=== PATIENT | female | born 1960 | race Caucasian/White ===

== ENCOUNTER 2025-02-23 12:42 | Outpatient (OUT) | payer MEDICARE, OTHER, SELFPAY ==
--- OUTSIDE RECORDS SUMMARY | 2025-02-18 23:59 | XMS_ITS | Continuity of Care Document ---
Author Organization [facility] Address [address] [place] [address] [place] [address] Care Team Providers Care Fruit Raiser Name Role Phone ERICKA CALLAWAY Primary Care Physician [phone] Encounter FT_BRISEIDA [id number] Date(s): 02/18/25 - 02/18/25 [facility] [address] [place], [place] [address] Encounter Diagnosis Former smoker(Discharge Diagnosis) - 02/18/25 Stress incontinence(Discharge Diagnosis) - 02/18/25 Gross hematuria(Discharge Diagnosis) - 02/18/25 History of kidney stones(Discharge Diagnosis) - 02/18/25 Discharge Disposition: Home (Routine DC) Attending Physician: Mauricio DAVIES, Alma Cruz Encounter Type: Clinic Allergies, Adverse Reactions, Alerts Substance Criticality Severity Reaction Reaction Severity Status sulfa drugs Rash Active Assessment and Plan Future Scheduled Tests Radiology* CT Abdomen/Pelvis w/o Contrast 02/18/25 Immunizations Given and Recorded Vaccine Date Status Refusal Reason RSV vaccine preF3, recombinant 08/08/23 Recorded influenza virus vaccine, inactivated 05/08/23 Mariano rded influenza virus vaccine, inactivated 05/23/22 Mariano rded influenza virus vaccine, inactivated 05/13/21 Mariano rded influenza virus vaccine, inactivated 05/04/20 Mariano rded influenza virus vaccine, inactivated 05/14/19 Mariano rded influenza virus vaccine, inactivated 05/14/18 Mariano rded influenza virus vaccine, inactivated 05/24/17 Mariano rded influenza virus vaccine, inactivated 05/09/16 Mariano rded influenza virus vaccine, inactivated 05/22/15 Mariano rded SARS-CoV-2 (COVID-19) [id number] 06/19/22 Recorded SARS-CoV-2 (COVID-19) mRNA BNT-162b2 vax 1 05/30/21 Recorded SARS-CoV-2 (COVID-19) mRNA BNT-162b2 vax 11/16/20 Recorded SARS-CoV-2 (COVID-19) mRNA BNT-162b2 vax 10/23/20 Recorded zoster vaccine, inactivated 08/24/20 Recorded zoster vaccine, inactivated 05/26/20 Recorded 1Result Comment: 2025-02-18: [id number] Medications atorvastatin 40 mg Tab 40 mg = 1 tab(s), Refills(s) 0 Start Date: 02/17/25 Status: Ordered Repeat number: 1 citalopram 20 mg Tab 20 mg = 1 tab(s), Refills(s) 0 Start Date: 02/17/25 Status: Ordered Repeat number: 1 gabapentin 300 mg Cap 300 mg = 1 cap(s), Refills(s) 0 Start Date: 02/17/25 Status: Ordered Repeat number: 1 levothyroxine 112 mcg (0.112 mg) Tab 112 mcg = 1 tab(s), Refills(s) 0 Start Date: 02/17/25 Status: Ordered Repeat number: 1 Lopressor 25 mg oral tablet 25 mg = 1 tab(s), Oral, Daily, Refills(s) 0 Start Date: 02/17/25 Status: Ordered Repeat number: 1 medroxyPROGESTERone 150 mg/mL IM Susp 150 mg = 1 mL, IntraMuscular, q3mo, # 1 mL, Refills(s) 0 Start Date: 02/17/25 Status: Ordered Quantity: 1.0 Unit: mL Repeat number: 1 Multi Vitamins oral tablet 1 tab(s), Oral, Daily Start Date: 02/18/25 Status: Ordered Repeat number: 1 omeprazole 40 mg Cap-DR 40 mg = 1 cap(s), Refills(s) 0 Start Date: 02/17/25 Status: Ordered Repeat number: 1 Vitamin C 1,000 mg, Oral, Daily Start Date: 02/18/25 Status: Ordered Repeat number: 1 Problem List Condition Confirmation Course Effective Dates Status H ealth Status Informant 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 Active Former smoker Confirmed Active Gross hematuria Confirmed Active Gastroesophageal reflux disease without esophagitis Confirmed 07/14/20 Active Stress incontinence Confirmed Active History of kidney stones Confirmed Active History of malignant basal cell neoplasm of skin Confirmed Active Hyperlipidemia Confirmed Active Hypothyroidism Confirmed Active Milia Confirmed Active Nonrheumatic mitral (valve) prolapse Confirmed Active STEMI (ST elevation myocardial infarction) Confirmed Active Neoplasm of skin Confirmed Active Osteoarthritis Confirmed Active Procedures Procedure Date Related Diagnosis Body Site Status Colonoscopy (procedure) 10/16/22 C ompleted Cyto Cvx 05/10/22 Completed Tubal ligation 07/06/98 Completed Ablation Completed Hip fracture Completed Social History Social History Type Response Smoking Status Former smoker, quit more than 30 days ago;Never; Type: Cigarettes; Started [age] age: 17.0; Stopped at age: 27; entered on: 02/18/25 Sex Female Sex Representation Female (finding) Hospital Discharge Instructions Patient Education 02/18/2025 10:21:16 Dietary Guidelines to Help Prevent Kidney Stones Dietary Guidelines to Help Prevent Kidney Stones Kidney stones are deposits of minerals and salts that form inside your kidneys. Your risk of developing kidney stones may be greater depending on your diet, your lifestyle, the medicines you take, and whether you have certain medical conditions. Most people can lower their risks of developing kidney stones by following these dietary guidelines. Your dietitian may give you more specific instructions depending on your overall health and the type of kidney stones you tend to develop. What are tips for following this plan? Reading food labels ??? Choose foods with no salt added or low-salt labels. Limit your salt (sodium) intake to lessthan 1,500 mg a day. ??? Choose foods with calcium for each meal and snack. Try to eat about 300 mg of calcium at each meal. Foods that contain 200???500 mg of calcium a serving include: ??? 8 oz (237 mL) of milk, fxtykae-mwfatcvwwgkj-zfyco milk, and calcium- fortifiedfruit juice. Calcium-fortified means that calcium has been added to these drinks. ??? 8 oz (237 mL) of kefir, yogurt, and soy yogurt. ??? 4 oz (114 g) of tofu. ??? 1 oz (28 g) of cheese. ??? 1 cup (150 g) of dried figs. ??? 1 cup (91 g) of cooked broccoli. ??? One 3 oz (85 g) can of sardines or mackerel. Most people need 1,000???1,500 mg of calcium a day. Talk to your dietitian about how much calcium is recommended for you. Shopping ??? Buy plenty of fresh fruits and vegetables. Most people do not need to avoid fruits and vegetables, even if these foods contain nutrients that may contribute to kidney stones. ??? When shopping for convenience foods, choose: ??? Whole pieces of fruit. ??? Pre-made salads with dressing on the side. ??? Low-fat fruit and yogurt smoothies. ??? Avoid buying frozen meals or prepared deli foods. These can be high in sodium. ??? Look for foods with live cultures, such as yogurt and kefir. ??? Choose high-fiber grains, such as whole-wheat breads, oat bran, and wheat cereals. Cooking ??? Do not add salt to food when cooking. Place a salt shaker on the table and allow each person toadd their own salt to taste. ??? Use vegetable protein, such as beans, textured vegetable protein (TVP), or tofu, instead of meat in pasta, casseroles, and soups. Meal planning ??? Eat less salt, if told by your dietitian. To do this: ??? Avoid eating processed or pre-made food. ??? Avoid eating fast food. ??? Eat less animal protein, including cheese, meat, poultry, or fish, if told by your dietitian. To do this: ??? Limit the number of times you have meat, poultry, fish, or cheese each week. Eat a diet free ofmeat at least 2 days a week. ??? Eat only one serving each day of meat, poultry, fish, or seafood. ??? When you prepare animal proteins, cut pieces into small portion sizes. For most meat and fish, one serving is about the size of the palm of your hand. ??? Eat at least five servings of fresh fruits and vegetables each day. To do this: ??? Keep fruits and vegetables on hand for snacks. ??? Eat one piece of fruit or a handful of berries with breakfast. ??? Have a salad and fruit at lunch. ??? Have two kinds of vegetables at dinner. ??? You may be told to limit foods that are high in a substance called oxalate. These include: ??? Spinach (cooked), rhubarb, beets, sweet potatoes, and [place] chard. ??? Peanuts. ??? Potato chips, grenadian fries, and baked potatoes with skin on. ??? Nuts and nut products. ??? Chocolate. ??? If you regularly take a diuretic medicine, make sure to eat at least 1 or 2 servings of fruits or vegetables that are high in potassium each day. These include: ??? Avocado. ??? Banana. ??? Carpenter, prune, carrot, or tomato juice. ??? Baked potato. ??? Cabbage. ??? Beans and split peas. Lifestyle ??? Drink enough fluid to keep your urine pale yellow. This is the most important thing you can do.Spread your fluid intake throughout the day. ??? If you drink alcohol: ??? Limit how much you have to: ??? 0???1 drink a day for women who are not . ??? 0???2 drinks a day for men. ??? Know how much alcohol is in your drink. In the [place] one drink equals one 12 oz bottle of beer (355 mL), one 5 oz glass of wine (148 mL), or one 1?? oz glass of hard liquor (44 mL). ??? Lose weight if told by your health care provider. Work with your dietitian to find an eating plan and weight loss strategies that work best for you. General information ??? Talk to your health care provider and dietitian about taking daily supplements. Depending on your health and the cause of your kidney stones, you may be told: ??? Do not take high-dose supplements of vitamin C (1,000 mg a day or more). ??? To take a calcium supplement. ??? To take a daily probiotic supplement. ??? To take other supplements such as magnesium, fish oil, or vitamin B6. ??? Take jipo-xee-yxirzyh and prescription medicines only as told by your health care provider. These include supplements. What foods should I limit? Limit your intake of the following foods, or eat them as told by your dietitian. Vegetables Spinach. Rhubarb. Beets. Canned vegetables. Pickles. Olives. Baked potatoes with skin. Grains Wheat bran. Baked goods. Salted crackers. Cereals high in sugar. Meats and other proteins Nuts. Nut butters. Large portions of meat, poultry, or fish. Salted, precooked, or cured meats, such as sausages, meat loaves, and hot dogs. Dairy Cheeses. Beverages Regular soft drinks. Regular vegetable juice. Seasonings and condiments Seasoning blends with salt. Salad dressings. Soy sauce. Ketchup. Barbecue sauce. Other foods Canned soups. Canned pasta sauce. Casseroles. Pizza. Lasagna. Frozen meals. Potato chips. Sinhala fries. The items listed above may not be a complete list of foods and beverages you should limit. Contact a dietitian for more information. What foods should I avoid? Talk to your dietitian about specific foods you should avoid based on the type of kidney stones youhave and your overall health. Fruits Grapefruit. The item listed above may not be a complete list of foods and beverages you should avoid. Contact adietitian for more information. Summary ??? Kidney stones are deposits of minerals and salts that form inside your kidneys. ??? You can lower your risk of kidney stones by making changes to your diet. ??? The most important thing you can do is drink enough fluid. Drink enough fluid to keep your urine pale yellow. ??? Talk to your dietitian about how much calcium you should have each day, and eat less salt and animal protein as told by your dietitian. This information is not intended to replace advice given to you by your health care provider. Make sure you discuss any questions you have with your health care provider. Document Revised: 11/02/2022 Document Reviewed: 11/02/2022 [employer] Patient Education ?? 2023 [employer] 02/18/2025 10:05:48 Hematuria, Adult Hematuria, Adult Hematuria is blood in the urine. Blood may be visible in the urine, or it may be identified with a test. This condition can be caused by infections of the bladder, urethra, kidney, or prostate. Otherpossible causes include: ??? Kidney stones. ??? Cancer of the urinary tract. ??? Too much calcium in the urine. ??? Conditions that are passed from parent to child (inherited conditions). ??? Exercise that requires a lot of energy. Infections can usually be treated with medicine, and a kidney stone usually will pass through your urine. If neither of these is the cause of your hematuria, more tests may be needed to identify the cause of your symptoms. It is very important to tell your health care provider about any blood in your urine, even if it ispainless or the blood stops without treatment. Blood in the urine, when it happens and then stops and then happens again, can be a symptom of a very serious condition, including cancer. There is no pain in the initial stages of many urinary cancers. Follow these instructions at home: Medicines ??? Take dfcp-qyk-zrfzche and prescription medicines only as told by your health care provider. ??? If you were prescribed an antibiotic medicine, take it as told by your health care provider. Donot stop taking the antibiotic even if you start to feel better. Eating and drinking ??? Drink enough fluid to keep your urine pale yellow. It is recommended that you drink 3???4 quarts (2.8???3.8 L) a day. If you have been diagnosed with an infection, drinking cranberry juice in addition to large amounts of water is recommended. ??? Avoid caffeine, tea, and carbonated beverages. These tend to irritate the bladder. ??? Avoid alcohol because it may irritate the prostate (in males). General instructions ??? If you have been diagnosed with a kidney stone, follow your health care provider's instructionsabout straining your urine to catch the stone. ??? Empty your bladder often. Avoid holding urine for long periods of time. ??? If you are female: ??? After a bowel movement, wipe from front to back and use each piece of toilet paper only once. ??? Empty your bladder before and after sex. ??? Pay attention to any changes in your symptoms. Tell your health care provider about any changesor any new symptoms. ??? It is up to you to get the results of any tests. Ask your health care provider, or the department that is doing the test, when your results will be ready. ??? Keep all follow-up visits. This is important. Contact a health care provider if: ??? You develop back pain. ??? You have a fever or chills. ??? You have nausea or vomiting. ??? Your symptoms do not improve after 3 days. ??? Your symptoms get worse. Get help right away if: ??? You develop severe vomiting and are unable to take medicine without vomiting. ??? You develop severe pain in your back or abdomen even though you are taking medicine. ??? You pass a large amount of blood in your urine. ??? You pass blood clots in your urine. ??? You feel very weak or like you might faint. ??? You faint. Summary ??? Hematuria is blood in the urine. It has many possible causes. ??? It is very important that you tell your health care provider about any blood in your urine, even if it is painless or the blood stops without treatment. ??? Take crsj-jem-fylrgps and prescription medicines only as told by your health care provider. ??? Drink enough fluid to keep your urine pale yellow. This information is not intended to replace advice given to you by your health care provider. Make sure you discuss any questions you have with your health care provider. Document Revised: 03/23/2021 Document Reviewed: 03/23/2021 [employer] Patient Education ?? 2023 [employer] Follow Up Care 01/30/2025 11:58:15 With:Mauricio DAVIES, SANJEEV Gamboa, URO Address: [address] [place] [address] [place] [address] [phone] When: Unknown Comments:f/u pending CTU results Patient Care team information Care Team Personnel Name: ERICKA CALLAWAY MD Position: FT Physician Member Role: Primary Care Physician Address: [address] [place] [id number] Telecom: Care Team Related Persons Name: Tyson Bergeron Insurance Providers Guarantor name: Health Plan Information #: 1 Payer: NA Payer Identifier: [id number] Member Number: [id number] Group Number: [id number] Subscriber Identifier: [id number] Relationship to Subscriber: Self Coverage Type: MEDICARE Coverage Verification Date: 25 Telecom: NA Address: Health Plan Information #: 2 Payer: NA Payer Identifier: [id number] Member Number: [id number] Group Number: PlanG Subscriber Identifier: [id number] Relationship to Subscriber: Self Coverage Type: PRIVATE HEALTH INSURANCE Coverage Verification Date: 25 Telecom: TIMA Address:
--- OUTSIDE RECORDS SUMMARY | 2025-02-23 12:50 | XMS_ITS | Encounter Summary ---
Author Organization Stephon Jenkins [facility] Address [address] [place] [address] Care Team Providers Care Administrative Sales Assistant Name Role Phone Oliver Hope MD Primary Care Provider [phone] Encounter Details Date Type Department Care Team (Late st Contact Info) Description 02/12/2025 Abstract [facility] Part of [address] [place] [id number] Nelly Mary, ASSISTANT STATISTICIAN - PRIMER PRESS OPERATOR [address] [place] [address] Social History Tobacco Use Types Packs/Day Years Used Date Smoking Tobacco: Former Cigarettes 1 15 1 09/14/1976 - 07/22/1989 Smokeless Tobacco: Never Alcohol Use Standard Drinks/Week Comments Yes 0 (1 standard drink = 0.6 oz pur e alcohol) AUDIT-C Answer Date Recorded Frequency of Alcohol Consumption Monthly or less 07/22/2019 Average Number of Drinks 1 or 2 019 Frequency of Binge Drinking Never 07/06 Overall Financial Resource Strain (CARDIA) Answe r Date Recorded How hard is it for you to pa y for the very basics like food, housing, medical care, and heating? Not hard at all 04/22/2024 PHQ-2 Answer Date Recorded PHQ-9 Total Score 0 04/22/2024 Hunger Vital Sign Answer Date Recorded Within the past 12 months, y ou worried that your food would run out before you got the money to buy more. Never true 04/22/20 24 Within the past 12 months, t he food you bought just didn't last and you didn't have money to get more. Never true 04/22/2024 PRAPARE - Transportation Answer Date Re corded Lack of Transportation (Medical) Not on file 04/22/2024 In the past 12 months, has l ack of transportation kept you from meetings, work, or from getting things needed for daily living? No 04/22/2024 Housing Stability Vital Sign Answer Chirag e Recorded Unable to Pay for Housing in the Last Year Not o n file 08/14/2023 Number of Places Lived in the Last Year Not on f ile 08/14/2023 In the last 12 months, was t here a time when you did not have a steady place to sleep or slept in a snf (including now)? No 08/14/2023 Housing Stability Vital Sign Answer Chirag e Recorded Unable to Pay for Housing in the Last Year Not o n file 04/22/2024 Number of Times Moved in the Last Year Not on fi le 04/22/2024 At any time in the past 12 m [facility], were you homeless or living in a snf (including now)? No 04/22/2024 Food Insecurity Answer Date Recorded Within the past 12 months, y ou worried that your food would run out before you got the money to buy more. 1 04/22/2024 Within the past 12 months, t he food you bought just didn't last and you didn't have money to get more. 1 04/22/2024 Interpersonal Safety Domain Source: IP Abuse Scr eening Answer Date Recorded Read-Only, Retired: Physical Abuse Denies 2023 Read-Only, Retired: Verbal Abuse Denies 2023 Read-Only, Retired: Emotional abuse Denies 2023 Read-Only, Retired: Financial Abuse Denies 2023 Read-Only, Retired: Sexual abuse Denies 2023 Comments No Sex and Gender Information Value Date Recorded Sex Assigned at Not on file Legal Sex Female 8:46 PM EST Gender Identity Not on file Sexual Orientation Not on file documented as of this encounter Plan of Treatment Upcoming Encounters Date Type Department Care Team (Late st Contact Info) Description 03/11/2025 3:50 PM EDT Clinical Support [facility] [address] [place] [address] GIL Fernandez, 04/21/2025 3:45 PM EDT Office Visit Silvia Hope MD [facility] [address] [place] [address] Oliver Hope MD [address] [place] [address] welcome to medicare; f/u labs 05/20/2025 11:10 AM EDT Office Visit [facility] [address] [place], [place] [id number] Minda Cash APRN - [address] [place] [address] Yearly documented as of this encounter Visit Diagnoses Not on filedocumented in this encounter Care Teams Administrative Sales Assistant Relationship Specialty Start Date End Date Oliver Hope MD [address] [place] [id number] PCP - General Internal Medicine 09/29/21 documented as of this encounter
--- OUTSIDE RECORDS SUMMARY | 2025-02-23 12:50 | XMS_ITS | Clinical Summary ---
Author Organization [facility] Address [id number] [address] [place] [address] Care Team Providers Care Marketing Regional Consultant Name Role Phone Unavailable Primary Care Provider Unavailabl e Social History Tobacco Use Types Packs/Day Years Used Date Smoking Tobacco: Never Assessed Childcare Answer Date Recorded Childcare Unknown 01/15/2019 Employment Answer Date Recorded Employment Unknown 01/15/2019 Purpose - Life Answer Date Recorded Purpose and direction in life Unknown Comments Unknown Sex and Gender Information Value Date Recorded Sex Assigned at Not on file Legal Sex Female 11:24 AM EDT Gender Identity Not on file Sexual Orientation Not on file Plan of Treatment Not on file Medical Devices Not on file Insurance [employer]
--- OUTSIDE RECORDS SUMMARY | 2025-02-23 12:50 | XMS_ITS | Clinical Summary ---
Author Organization [facility] Address [address], [address] [place] [address] Care Team Providers Care Tare Man Name Role Phone Oliver Hope MD Primary Care Provider [phone] Allergies Active Allergy Reactions Criticality Noted Date Comments Silicone Other (See Comments) Low 03/06/2013 unknown Sulfa Antibiotics Rash Low 03/06/2013 Medications aspirin 81 MG tablet Take 1 tablet by mouth daily Active polyethylene glycol (GLYCOLAX) powder Take 17 g by mouth daily Active Multiple Vitamins-Minera ls (THERAPEUTIC MULTIVITAMIN-MA NERALS) tablet Take 1 tablet by mouth daily 50+ Centrum Silver Active vitamin C (ASCORBIC ACID) 500 MG tablet Take 2 tablets by mouth daily Active Calcium-Vitamin D-Vitamin K ([employer] CALCIUM SOFT CHEWS) 650-12.5-40 MG-MCG-MCG CHEW Take 650 mg by mouth daily Active Multiple Vitamins-Minera ls (VISION FORMULA EYE HEALTH) CAPS Take 1 capsule by mouth daily Active Probiotic Product (PROBIOTIC PEARLS WOMENS) CAPS Take 17 mg by mouth daily Active estrogens conjugated (PREMARIN) 0.625 MG/GM CREA vaginal creamIndication s:Vaginal dryness, menopausal,Post menopausal hormone replacement therapy Place 0.5 g vaginally daily For 2 weeks then 1-2 Xs a week 90 g 2 05/15/20 24 Active estrogen, conjugated,-med roxyPROGESTERon e (PREMPRO) 0.3-1.5 MG per tabletIndicatio ns:Postmenopaus al hormone replacement therapy Take 1 tablet by mouth daily 90 tablet 3 06/09/20 24 Active levothyroxine (SYNTHROID) 112 MCG tablet Take 1 tablet by mouth once daily 90 tablet 3 06/27/20 24 Active medroxyPROGESTE Renard (DEPO-PROVERA) 150 MG/ML injection Inject 1 mL into the muscle every 3 months 1 mL 3 08/26/19 25 Active citalopram (CELEXA) 20 MG tablet TAKE 1 TABLET BY MOUTH EVERY DAY 90 tablet 3 11/04/19 25 Active gabapentin (NEURONTIN) 300 MG capsule TAKE 1 CAPSULE BY MOUTH TWICE A DAY AND 2 CAPS AT BEDTIME Active SUMAtriptan (IMITREX) 50 MG tablet Take by mouth Active omeprazole (PRILOSEC) 40 MG delayed release capsule TAKE 1 CAPSULE BY MOUTH EVERY DAY 90 capsule 3 02/04/20 25 Active atorvastatin (LIPITOR) 40 MG tablet TAKE 1 TABLET BY MOUTH EVERY DAY 90 tablet 3 02/04/20 25 Active metoprolol tartrate (LOPRESSOR) 25 MG tablet TAKE 1 TABLET BY MOUTH TWICE A DAY 180 tablet 3 02/04/20 25 Active atorvastatin (LIPITOR) 40 MG tablet TAKE 1 TABLET DAILY 90 tablet 3 02/18/20 24 025 Discontinued metoprolol tartrate (LOPRESSOR) 25 MG tablet TAKE 1 TABLET TWICE A DAY 180 tablet 3 02/18/20 24 025 Discontinued omeprazole (PRILOSEC) 40 MG delayed release capsule Take 1 capsule by mouth once daily 90 capsule 3 04/21/20 24 025 Discontinued Active Problems Problem Noted Date Diagnosed Date Acute rhinitis 05/18/2021 Coronary artery dissection 12/03/2020 Gastroesophageal reflux disease without esophagi tis 07/14/2020 Encounters Date Type Department Care Team Description 02/12/2025 Abstract [facility] Part of [address] [place] [address] Nelly Mary, ELECTRONIC TEST TECHNICIAN - RECRUITING MANAGER 02/03/2025 Refill Silvia Hope MD [address] [address] Oliver Hope MD Medication Refill 01/30/2025 9:17 AM EDT - 02/01/2025 11:59 PM EDT Hospital Encounter [facility] Ultrasound [address] [place] [id number] Oliver Hope MD Encounter for abdominal aortic aneurysm (AAA) screening Discharge Disposition: Home or Self Care 01/26/2025 Orders Only [facility] [address] [place] [address] Oliver Hope MD Encounter for abdominal aortic aneurysm (AAA) screening (Primary Dx) 01/22/2025 Telephone [facility] [address] [place] [address] Kat Moreno Other 12/18/2024 Refill [facility] [address] [place] [phone] Oliver Hope MD Medication Refill 12/15/2024 8:30 AM EDT Clinical Support [facility] Part of [facility] [address] [place] [address] Postmenopausal hormone replacement therapy (Primary Dx) from Last 3 Months Immunizations Immunization Administration Dates Next Due COVID-19, PFIZER PURPLE top, DILUTE for use, (age 12 y+), 30mcg/0.3mL 05/30/2021,11/16/2020,10/23/2020 Influenza Virus Vaccine 05/08/2023,05/08,05/24/2017,2015,05/22/2015 Influenza, AFLURIA (age 3 y+ ), FLUZONE, (age 6 mo+), Quadv MDV, 0.5mL 05/24/2017,05/09/2016,05/22/2015 Influenza, FLUARIX, FLULAVAL , FLUZONE (age 6 mo+) and AFLURIA, (age 3 y+), Quadv PF, 0.5mL 05/23/2022,05/13/2021,05/04/2020,2018,05/14/2018 RSV, AREXVY, (age 60y+), PF, IM, 0.5mL 08/08/2023 TDaP, ADACEL (age 10y-64y), BOOSTRIX (age 10y+), IM, 0.5mL 08/06/2015 Zoster Recombinant (Shingrix) 08/24/2020, 020 Family History Medical History Relation Name Comments Heart Disease Brother 1 pacemaker Anxiety Disorder Brother 2 Anxiety Disorder Brother 3 Heart Disease Brother 3 Bipolar Disorder Father High Cholesterol Father Stroke Father Heart Disease Mother Osteoporosis Mother Other Mother from bowel perforation at age 87 Thyroid Disease Mother Breast Cancer Paternal Aunt 1 Breast Cancer Paternal Aunt 2 Emphysema Paternal Grandfather Relation Name Status Comments Brother 1 Alive Brother 2 Alive Brother 3 Alive Father Mother Paternal Aunt 1 Paternal Aunt 2 Paternal Grandfather Social History Tobacco Use Types Packs/Day Years Used Date Smoking Tobacco: Former Cigarettes 1 15 1 09/14/1976 - 07/22/1989 Smokeless Tobacco: Never Tobacco Cessation:Counseling Given: Not Answered Alcohol Use Standard Drinks/Week Comments Yes 0 [...] place to sleep or slept in a long term (including now)? No 08/14/2023 Housing Stability Vital Sign Answer Chirag e Recorded Unable to Pay for Housing in the Last Year Not o n file 04/22/2024 Number of Times Moved in the Last Year Not on fi le 04/22/2024 At any time in the past 12 m [facility], were you homeless or living in a long term (including now)? No 04/22/2024 Food Insecurity Answer [...] on file Sexual Orientation Not on file Last Filed Vital Signs Vital Sign Reading Time Taken Comments Blood Pressure 122/80 05/15/2024 11:06 AM EDT Pulse 55 04/22/2024 10:09 AM EDT Temperature 36.8 C (98.3 F) 04/22/2024 10:09 AM EDT Respiratory Rate 23 10/21/2020 3:00 AM EDT Oxygen Saturation 97% 04/22/2024 10:09 AM EDT Inhaled Oxygen Concentration - - Weight 68 kg (150 lb) 05/15/2024 11:06 AM EDT Height 165.1 cm (5' 5 ) 05/15/2024 11:06 AM EDT Body Mass Index 24.96 05/15/2024 11:06 AM EDT Plan of Treatment Upcoming Encounters Date Type Department Care Team (Late st Contact Info) Description 03/11/2025 3:50 PM EDT Clinical Support [facility] [address] [place] [phone] GIL Fernandez, 04/21/2025 3:45 PM EDT Office Visit [facility] [address] [place] [phone] Oliver Hope MD [address] [place] [address] welcome to medicare; f/u labs 05/20/2025 11:10 AM EDT Office Visit [facility] [address] [place] [address] Minda Cash APRN - [place] [place] [address] Yearly Health Maintenance Due Date Last Done Comments Fecal-DNA (Cologuard): Average risk 2004 Sigmoidoscopy/CT colonography 2004 Pneumococcal 50+ years Vaccine (1 of 1 - PCV) 2009 FIT/FOBT: Average risk 03/14/2019 03/14/2018 COVID-19 Vaccine ( season) 2024 08/08/2023, 06/19/2022, 05/30/2021, Additional history exists Annual Wellness Visit (Medicare) 08/07/2024 Lipids 02/25/2025 02/26/2024, 02/03, 02/27/2022, Additional history exists Flu vaccine (#1) 03/06/2025 05/08/2023, 10/2022, 05/23/2022, Additional history exists Depression Screen 04/22/2025 04/22/2024, 04/22/2024 Pap smear 05/10/2025 05/10/2022, 08/0 01/2019, 04/17/2016, Additional history exists DTaP/Tdap/Td vaccine (2 - Td or Tdap) 08/06/2025 08/06/2015 Breast cancer screen 08/26/2026 08/26/2024, 08/01/2023, 07/27/2022, Additional history exists Cervical cancer screen 05/10/2027 HPV (without or with Pap) 05/10/2027 05/10/2022, 01/2019 Colonoscopy 10/17/2027 10/16/2022, 08/08, 04/16/2012 Colorectal Cancer Screen 10/17/2027 DEXA (modify frequency per FRAX score) Completed 05/09/2017 Shingles vaccine Completed 08/24/2020, 05/26/2020 Diabetes screen Discontinued 02/08/2021, 04/07, 04/19/2018 Respiratory Syncytial Virus (RSV) or age 60 yrs+ Completed 08/08/2023 HIV screen Discontinued Hepatitis A vaccine Aged Out No longe r eligible based on patient's age to complete this topic Hepatitis B vaccine Aged Out No longe r eligible based on patient's age to complete this topic Hepatitis C screen Discontinued Hib vaccine Aged Out No longer eligi ble based on patient's age to complete this topic Meningococcal (ACWY) vaccine Aged Out No longer eligible based on patient's age to complete this topic Meningococcal B vaccine Aged Out No l onger eligible based on patient's age to complete this topic Polio vaccine Aged Out No longer elig ible based on patient's age to complete this topic Procedures Procedure Name Priority Date/Time Associated Diagnosis Comments VAS AAA SCREENING Routine 01/30/2025 9:4 1 AM EDT Encounter for abdominal aortic aneurysm (AAA) screening SHAWANDA MELBA DIGITAL SCREEN BILATERAL Routine 08/26/2024 6:04 PM EST Encounter for screening mammogram for malignant neoplasm of breast LIPID PANEL Routine 02/26/2024 Routine general medical examination at a health care facility HM COLONOSCOPY Routine 10/16/2022 HUMAN PAPILLOMAVIRUS (HPV) DNA PROBE THIN PREP HIGH RISK Routine 05/10/2022 7:57 AM EDT SUPERVISOR MOLD SHOP CYTOLOGY Routine 05/10/2022 7:57 AM EDT COMPREHENSIVE METABOLIC PANEL, FASTING Routine 02/08/2021 POCT FECAL IMMUNOCHEMICAL TEST (FIT) Routine 03/14/2018 11:52 AM EDT Screening for rectal cancer DEXA BONE DENSITY AXIAL SKELETON Routine 05/09/2017 9:59 AM EDT Menopausal state History of osteopenia from Last 3 Months or Most Recently Relevant to Health Maintenance Results * Vascular AAA screening (01/30/2025 9:41 AM EDT) Anatomical Region Laterality Modality Ultrasound 01/31/2025 7:49 AM EDT Impressions 01/31/2025 7:50 AM EDT No evidence of abdominal aortic aneurysm. Narrative 01/31/2025 7:50 AM EDT EXAMINATION: RETROPERITONEAL ULTRASOUND OF THE AORTA 01/30/2025 TECHNIQUE: Duplex ultrasound using B-mode/david scaled imaging, Doppler spectral analysis and color flow Doppler was obtained of the aorta. COMPARISON: None HISTORY: ORDERING SYSTEM PROVIDED HISTORY: Screening for AAA FINDINGS: Aorta: There is presence of color flow with an arterial spectral Doppler waveform in the visualized abdominal aorta. Proximal abdominal aorta measures 1.69 cm (AP) by 1.59 cm (transverse). Mid abdominal aorta measures 1.85 x 1.57 cm. Distal abdominal aorta measures 1.34 x 1.53 cm. Iliacs: Visualized common iliac arteries are patent and normal in caliber. Procedure Note Donald Aguayo MD - 01/31/2025 EXAMINATION: RETROPERITONEAL ULTRASOUND OF THE AORTA 01/30/2025 TECHNIQUE: Duplex ultrasound using B-mode/david scaled imaging, Doppler spectralanalysis and color flow Doppler was obtained of the aorta. COMPARISON: None HISTORY: ORDERING SYSTEM PROVIDED HISTORY: Screening for AAA FINDINGS: Aorta: There is presence of color flow with an arterial spectral Doppler waveformin the visualized abdominal aorta. Proximal abdominal aorta measures 1.69 cm (AP) by 1.59 cm (transverse).Mid abdominal aorta measures 1.85 x 1.57 cm. Distal abdominal aortameasures 1.34 x 1.53 cm. Iliacs: Visualized common iliac arteries are patent and normal in caliber. IMPRESSION: No evidence of abdominal aortic aneurysm. Oliver Hope MD CV VASCULAR ORDERABLES Fi nal Result * SHAWANDA MELBA DIGITAL SCREEN BILATERAL (08/26/2024 6:04 PM EST) Anatomical Region Laterality Modality Breast Bilateral Mammography 08/27/2024 8:59 AM EST Impressions 08/27/2024 8:59 AM EST No mammographic evidence of malignancy BIRADS: BIRADS - CATEGORY 1 Negative. Normal interval follow-up is recommended in 12 months. OVERALL ASSESSMENT - NEGATIVE A letter of notification will be sent to the patient regarding the results. [employer] recommends annual mammograms for women 40 years and older. Performing Facility: [place] [address] Narrative 08/27/2024 8:59 AM EST EXAMINATION: SCREENING DIGITAL BILATERAL MAMMOGRAM WITH TOMOSYNTHESIS, 08/26/2024 TECHNIQUE: Screening mammography was performed with tomosynthesis including MLO and CC views of the bilateral breasts. Computer aided detection was used for the interpretation of this exam. COMPARISON: August 01, 2023 HISTORY: Screening. FINDINGS: There are scattered areas of fibroglandular density. There is no dominant mass, architectural distortion or concerning grouping of microcalcification in either breast. Minda Cash ELECTRONIC TEST TECHNICIAN - CNM IMG MAMMOGRAPHY ORDER JOSE Final Result * Lipid Panel (02/26/2024) Cholesterol, Total 168 mg/dL HDL 65 35 - 70 mg/dL LDL Cholesterol 84 Triglycerides 94 mg/dL Chol/HDL Ratio 2.58 VLDL Cholesterol non HDL Blood BLOOD SPECIMEN / Unknown 02/26/2024 Oliver Hope MD CHEMISTRY ORDERABLES Ellie l Result * HM COLONOSCOPY (10/16/2022) Historical Provider HEALTH MAINTENANCE Final Result * Human papillomavirus (HPV) DNA probe thin prep high risk (05/10/2022 7:57 AM EDT) Specimen Description .GENITAL - NOT SPECIFIED 05/10/2022 7:57 AM EDT [facility] .THIN PREP 05/10/2022 7:57 AM EDT [facility], Genotype 16 Not Detected Not Detected 05/10/2022 7:[address] [facility] [employer] HPV, Genotype 18 Not Detected Not Detected 05/10/2022 7:57 AM EDT [facility], High Risk Other Not Detected Not Detected 05/10/2022 7:57 AM EDT [facility] HPV, Interpretation 05/10/2022 7:[address] [facility] [employer] Comment: This test amplifies and detects DNA of 14 high-risk HPV types associated with cervical cancer and its precursor lesions (HPV types 16,18, 31, 33, 35, 39, 45, 51, 52, 56, 58, 59, 66, and 68). Sensitivity may be affected by specimen collection methods, stage of infection, and the presence of interfering substances. Results should be interpreted in conjunction with other available laboratory and clinical data. A negative high-risk HPV result does not exclude the possibility of future cytologic HSIL or underlying CIN2-3 or cancer. This test is intended for medical purposes only and is not valid for the evaluation of suspected sexual abuse or for other forensic purposes. SPECIMEN FROM GENITAL SYSTEM / Unknown 05/10/2022 7:57 AM EDT Minda Cash ELECTRONIC TEST TECHNICIAN - CNM HEMATOLOGY ORDERABLES Final Result [facility] [address] [place] [address], [facility] [phone] [address], [facility] [phone] * SUPERVISOR MOLD SHOP Cytology (05/10/2022 7:57 AM EDT) Cytology Report INTERPRETATION Cervical material, (ThinPrep vial, Imaging-assisted review): Specimen Adequacy: Satisfactory for evaluation. Descriptive Diagnosis: Negative for intraepithelial lesion or malignancy. Retort Feeder Ground Bone: PARTHA Vogel(ASCP) Electronically Signed Out yusuf/05/17/2022 Procedure/Addendum HPV Procedure Report Date Ordered: 05/11/2022 Status: Signed Out Date Complete: 05/11/2022 By: System Interface Date Reported: 05/11/2022 Sample: HPV Type 16 Result: Not Detected Ref Range: (Not Detected) Sample: HPV Type 18 Result: Not Detected Ref Range: (Not Detected) Sample: Other High Risk HPV Result: Not Detected Ref Range: (Not Detected) Sample: HPV Interp Result: Ref Range: (Not Detected) This test amplifies and detects DNA of 14 high-risk HPV types associated with cervical cancer and its precursor lesions (HPV types 16,18, 31, 33, 35, 39, 45, 51, 52, 56, 58, 59, 66, and 68). Sensitivity may be affected by specimen collection methods, stage of infection, and the presence of interfering substances. Results should be interpreted in conjunction with other available laboratory and clinical data. A negative high-risk HPV result does not exclude the possibility of future cytologic HSIL or underlying CIN2-3 or cancer. This test is intended for medical purposes only and is not valid for the evaluation of suspected sexual abuse or for other forensic purposes. Source: A: Cervical material, (ThinPrep vial, Imaging-assisted review) Clinical History Endometrial ablation Z01.419 Routine open shank coverer exam without abnormal findings Z11.51 Encounter for screening for HPV Co-Test: ThinPrep Pap with high risk HPV testing GYNECOLOGIC CYTOLOGY REPORT Patient Name: INGE BERGERON [facility] Rec: [id number] Path Number: [id number] [facility] ANATOMIC PATHOLOGY [address] [place] [phone] [facility] [employer] CERVICAL MATERIAL 05/10/2022 7:57 AM EDT 05/11/2022 7:57 AM EDT Minda Cash ELECTRONIC TEST TECHNICIAN - CNMilad PATHOLOGY/CYTOLOGY OR DERABLES Final Result [facility] [address] [place] [address], [facility] [phone] [phone] * Comprehensive Metabolic Panel, Fasting (02/08/2021) Glucose, Fasting 96 mg/dL Creatinine 0.49 BUN Sodium Potassium 4.2 mmol/L Chloride CO2 Calcium 9.4 mg/dL AST 27 U/L Alkaline Phosphatase Total Protein Albumin Total Bilirubin ALT 28 U/L BLOOD SPECIMEN / Unknown 02/08/2021 Historical Provider MD CHEMISTRY ORDERABLES Edit ed Result - Final * POCT Fecal Immunochemical Test (FIT) (03/14/2018 11:52 AM EDT) Occult Blood Fecal negative Control A STOOL SPECIMEN / Unknown 03/14/2018 11:52 AM EDT Minda Cash APRN - CNM POINT OF CARE TEST OR DERABLES Final Result * DEXA BONE DENSITY AXIAL SKELETON (05/09/2017 9:59 AM EDT) Anatomical Region Laterality Modality Head, C-spine, T-spine, L-spine, Chest Radiographic Imaging 05/09/2017 10:0 0 AM EDT Impressions 05/09/2017 10:10 AM EDT Osteoporosis involving the lumbar spine and hips. Narrative 05/09/2017 10:10 AM EDT REPORT: DEXA scan TECHNIQUE: Routine bone densitometry of the lumbar spine and hips performed. INDICATION: Postmenopausal female, loss of height (1 inch); history of osteopenia; osteoporosis screening. FINDINGS: Comparison with lumbar spine bone mineral density study of 01/15/2004. Combined T score of the lumbar spine is -2.9, which is osteoporotic. T score of the left femoral neck is -2.5, which shows borderline osteoporosis.. T score of the right femoral neck is -3.0, which is osteoporotic. The lumbar spine bone mineral density shows a decrease of 12.9% since the study of 01/15/2004. Final report electronically signed by Manpreet Farmer on 05/09/2017 10:10 AM Procedure Note Manpreet Farmer MD - 05/09/2017 REPORT: DEXA scan TECHNIQUE: Routine bone densitometry of the lumbar spine and hipsperformed. INDICATION: Postmenopausal female, loss of height (1 inch); history ofosteopenia; osteoporosis screening. FINDINGS: Comparison with lumbar spine bone mineral density study of01/15/2004. Combined T score of the lumbar spine is -2.9, which isosteoporotic. T score of the left femoral neck is -2.5, which showsborderline osteoporosis.. T score of the right femoral neck is -3.0, which is osteoporotic. The lumbar spine bone mineraldensity shows a decrease of 12.9% since the study of 01/15/2004. Final report electronically signed by Manpreet Farmer on 05/09/2017 10:10AM IMPRESSION: Osteoporosis involving the lumbar spine and hips. Gustavo Vences ELECTRONIC TEST TECHNICIAN - RECRUITING MANAGER IMG DEXA ORDERABLES Final Result from Last 3 Months or Most Recently Relevant to Health Maintenance Insurance [facility] [place] Care Teams Tare Man Relationship Specialty Start Date End Date Oliver Hope MD [address] [place] [address] PCP - General Internal Medicine 09/29/21
--- OUTSIDE RECORDS SUMMARY | 2025-02-23 12:50 | XMS_ITS | Encounter Summary ---
Author Organization [facility] Address [address], [address] [place] [address] Care Team Providers Care Process Safety Management Engineer Name Role Phone Oliver Hope MD Primary Care Provider [phone] Reason for Visit * Reason Comments Medication Refill Encounter Details Date Type Department Care Team (Late st Contact Info) Description 04/11/2020 Refill Sadiq Gan MD [address] [place] [phone] Kehinde Goldstein, STATISTICAL GENETICIST - PROJECT ESTIMATOR [address] [facility] [address], [place] [address] Medication Refill Social History Tobacco Use Types Packs/Day Years Used Date Smoking Tobacco: Former Cigarettes 1 09/22/1973 - 07/22/1989 Smokeless Tobacco: Never Alcohol Use Standard Drinks/Week Comments Yes 0 (1 standard drink = 0.6 oz pur e alcohol) AUDIT-C Answer Date Recorded Frequency of Alcohol Consumption Monthly or less 07/22/2019 Average Number of Drinks 1 or 2 019 Frequency of Binge Drinking Never 07/06 PHQ-2 Answer Date Recorded PHQ-2 Score 0 07/22/2019 Comments No Sex and Gender Information Value Date Recorded Sex Assigned at Not on file Legal Sex Female 8:46 PM EST Gender Identity Not on file Sexual Orientation Not on file COVID-19 Exposure Response Date Recorded In the last month, have you been in contact with someone who was confirmed or suspected to have Coronavirus / COVID-19? No / Unsure 03/16/2020 8:31 AM EDT documented as of this encounter Plan of Treatment Upcoming Encounters Date Type Department Care Team (Late st Contact Info) Description 03/11/2025 3:50 PM EDT Clinical Support [facility] [address] [place] [address] Depo, PS, KP 04/21/2025 3:45 PM EDT Office Visit Silvia Hope MD [facility] [address] [place] [address] Oliver Hope MD [address] [place] [address] welcome to medicare; f/u labs 05/20/2025 11:10 AM EDT Office Visit [facility] [address] [place] [phone] Minda Cash APRN - [address] [facility] [address] [place], [place] [phone] Yearly documented as of this encounter Visit Diagnoses Not on filedocumented in this encounter Care Teams Process Safety Management Engineer Relationship Specialty Start Date End Date Oliver Hoep MD [address] [place] [phone] PCP - General Internal Medicine 09/29/21 documented as of this encounter
--- OUTSIDE RECORDS SUMMARY | 2025-02-23 12:51 | XMS_ITS | Clinical Summary ---
Author Organization [facility] Address [address] [place] [address] Phone Care Team Providers Care Harness Cutter Name Role Phone Unavailable Primary Care Provider Unavailabl e Social History Tobacco Use Types Packs/Day Years Used Date Smoking Tobacco: Never Assessed Comments Unknown Sex and Gender Information Value Date Recorded Sex Assigned at Not on file Legal Sex Female 5:43 PM EST Gender Identity Not on file Sexual Orientation Not on file Plan of Treatment Not on file
--- OUTSIDE RECORDS SUMMARY | 2025-02-23 12:51 | XMS_ITS | Encounter Summary ---
Author Organization Stephon Lam [facility] Address [address], [address] [place] [address] Care Team Providers Care Brewery Technician Name Role Phone Oliver Hope MD Primary Care Provider [phone] Encounter Details Date Type Department Care Team (Late st Contact Info) Description 12/03/2020 Abstract [facility] [address], [address] [place] [id number] Kehinde Goldstein, DIAMOND FINISHING SUPERVISOR - PHARMACIST IN CHARGE OWNER [address] [facility], [facility] [address] [place] [id number] Social History Tobacco Use Types Packs/Day Years [...] Drinking Never 07/06 PHQ-2 Answer Date Recorded PHQ-9 Total Score 0 08/13/2020 Comments No Sex and Gender Information Value Date Recorded Sex Assigned at Not on file Legal Sex Female 8:46 PM EST Gender Identity Not on file Sexual Orientation Not on file documented as of this encounter Plan of Treatment Upcoming Encounters Date Type Department Care Team (Late st Contact Info) Description 03/11/2025 3:50 PM EDT Clinical Support [facility] [address] [place] [address] Maryo, PS, 04/21/2025 3:45 PM EDT Office Visit Silvia Hope MD [facility] [address] [place] [address] Oliver Hope MD [address] [place] [address] welcome to medicare; f/u labs 05/20/2025 11:10 AM EDT Office Visit [facility] [address] [place] [address] Minda Cash APRN - [address] [place] [address] Yearly documented as of this encounter Visit Diagnoses Not on filedocumented in this encounter Care Teams Brewery Technician Relationship Specialty Start Date End Date Oliver Hope MD [address] [place] [id number] PCP - General Internal Medicine 09/29/21 documented as of this encounter
--- NOTE | 2025-02-23 12:52 | CT_ITS ---
The [address] [address] Patient Name: JUDIT MONZON MRN: [id number] date: 1960 Sex: F Assigned Patient Location: CT Current Patient Location: CT Accession/Order Number: [id number] Exam Date: 02/23/2025 13:35 Report Date: 02/23/2025 13:36 At the request of: MAIKEL HERNANDEZ MD Procedure: CT abdomen pelvis wo con CT ABDOMEN AND PELVIS WITHOUT INTRAVENOUS CONTRAST: CLINICAL HISTORY: Gross Hematuria COMPARISON: None TECHNIQUE: Spiral images were obtained through the abdomen and pelvis without intravenous contrast. This CT exam was performed using one or more following dose reduction techniques: Automated exposure control, adjustment of the mA and/or kV according to patient size, or use of iterative reconstruction technique. FINDINGS: Lung Bases: [No acute process.] Organs:Suboptimal evaluation due to lack of IV contrast. Cholelithiasis. Liver spleen pancreas and adrenal glands all appear unremarkable. Bilateral nephrolithiasis largest stone measuring 4 mm involving the right kidney. No obstructive uropathy. Aorta appears normal in caliber.[ GI: Stomach is grossly unremarkable. Small bowel appears nondilated. Appendix is normal. No acute colonic abnormality.[ Pelvis:[Urinary bladder and uterus appear grossly unremarkable.] Peritoneum/Retroperitoneum:No free air or free fluid or lymphadenopathy.[ Abd wall/Bones:Abdominal wall demonstrate no acute process. Osseous structures demonstrate degenerative change.[ CT/CT abdomen pelvis wo con IMPRESSION: Bilateral nephrolithiasis without obstruction. Cholelithiasis. Impression dictated by: Alverto Villegas Jr., DElizabethOElizabeth 02/23/2025 1:36 PM Dictation Location: [place] [address] Electronically authenticated by: [id number] Y Date: 02/23/2025 13:36
== END 2025-02-23 12:43 | disposition home or self-care (01) ==
LOC: CT 12:47
PROVIDERS: PCP Internal Medicine; Visit Provider Urology
DX: R31.0 Gross hematuria (principal); Z87.442 Personal history of urinary calculi; N20.0 Calculus of kidney; K80.20 Calculus of gallbladder without cholecystitis without obstruction
CPT/HCPCS: 74176

== ENCOUNTER 2025-03-20 09:42 | Outpatient (OUT) | payer MEDICARE, OTHER, SELFPAY ==
--- OUTSIDE RECORDS SUMMARY | 2025-03-11 15:50 | XMS_ITS | Encounter Summary ---
Author Organization [facility] Address [address], [address] [place] [address] Care Team Providers Care Elevator Runner Name Role Phone Oliver Hope MD Primary Care Provider [phone] Reason for Visit * Reason Comments Injections Patient is here toda y for depo injection, pt was given depo in Right vastus lateralis Encounter Details Date Type Department Care Team (Latest Contact Info) Description 03/11/2025 3:50 PM EDT Clinical Support [facility] Part of [facility] [address] [place] [address] Postmenopausal hormone replacement therapy (Primary Dx) Social History Tobacco Use Types Packs/Day Years Used Date Smoking Tobacco: Former Cigarettes 1 15 1 09/14/1976 - 07/22/1989 Smokeless Tobacco: Never Alcohol Use Standard Drinks/Week Comments Yes 0 (1 standard drink = 0.6 oz pur e alcohol) [facility] Utilities Answer Date Recorded In the past 12 months has [employer], gas, oil, or water [employer] threatened to shut off services in your home? No 03/11/2025 AUDIT-C Answer Date Recorded Frequency of Alcohol [...] Answer Date Recorded PHQ-9 Total Score 0 03/11/2025 Hunger Vital Sign Answer Date Recorded Within the past 12 months, y ou worried that your food would run out before you got the money to buy more. Never true 03/11/20 25 Within the past 12 months, t he food you bought just didn't last and you didn't have money to get more. Never true 03/11/2025 PRAPARE - Transportation Answer Date Re corded In the past 12 months, has l ack of transportation kept you from medical appointments or from getting medications? No 01/2025 In the past 12 months, has l ack of transportation kept you from meetings, work, or from getting things needed for daily living? No 03/11/2025 Housing Stability Vital Sign Answer Chirag e Recorded Unable to Pay for Housing in the Last Year Not o n file 08/14/2023 Number of Places Lived in the Last Year Not on f ile 08/14/2023 In the last 12 months, was t here a time when you did not have a steady place to sleep or slept in a group home (including now)? No 08/14/2023 Housing Stability Vital Sign Answer Chirag e Recorded In the last 12 months, was t here a time when you were not able to pay the mortgage or rent on time? No 03/11/2025 In the past 12 months, how m any times have you moved where you were living? 0 03/11/2025 At any time in the past 12 m onths, were you homeless or living in a group home (including now)? No 03/11/2025 Food Insecurity Answer Date Recorded Within the past 12 months, y ou worried that your food would run out before you got the money to buy more. 1 03/11/2025 Within the past 12 months, t he food you bought just didn't last and you didn't have money to get more. 1 03/11/2025 Interpersonal Safety Domain Source: IP Abuse Scr [...] on file documented as of this encounter Progress Notes * lAly Unger MA - 03/11/2025 3:53 PM EDT Nurse visit Injection Date of service: 03/11/2025 Inge Bergeron Is a 64 y.o. female PT's PCP is: Oliver Hope MD : 1960 Subjective: No LMP recorded. Patient has had an ablation. Allergies: Silicone and Sulfa antibiotics Chief Complaint Patient presents with Injections Patient is here today for depo injection, pt was given depo in Right vastus lateralis Last Yearly date: 05/15/24 Last pap date : Date of last Cervical Cancer screen (HPV or PAP): 05/10/2022 results: (-) Last HPV date and results: 03/10/22(-) LAST DEPO: 12/15/24 ( if past 13 weeks and not on period please talk with provider) PE: Vital Signs not currently . Labs: No results found for this visit on 03/11/25. Yes PT denies fever, chills, nausea and vomiting Assessment and Plan Diagnosis Orders 1. Postmenopausal hormone replacement therapy injection was: patient supplied NURSE: Aurelia SPENCER documented in this encounter Plan of Treatment Upcoming Encounters Date Type Department Care Team (Late st Contact Info) Description 04/21/2025 3:45 PM EDT Office Visit Silvia Hope MD [facility] [address] [place] [phone] Oliver Hope MD [address] [place], [place] [phone] welcome to medicare; f/u labs 05/20/2025 11:10 AM EDT Office Visit [facility] Part of [address] [place] [address] Minda Cash APRN - [facility] [address] [facility] [address] [place] [address] Yearly documented as of this encounter Visit Diagnoses Diagnosis Postmenopausal hormone replacement therapy- Primary Need for prophylactic hormone replacement therapy (postmenopausal) documented in this encounter Administered Medications Inactive Administered Medications - up to 3 most recent administrations Medication Order MAR Action Action Date Dose Rate Site medroxyPROGESTERone (DEPO-PROVERA) injection 150 mg 150 mg, IntraMUSCular, ONCE, 1 dose, On Sun03/11/25 at 1630Indications:Postmen opausal hormone replacement therapy Given 03/11/2025 4:02 PM EDT 150 mg Vastus Lateralis Right documented in this encounter Additional Health Concerns Assessment Noted Time A fall risk assessment has been complete d for the patient 03/11/2025 3:59 PM EDT documented as of this encounter Care Teams Elevator Runner Relationship Specialty Start Date End Date Oliver Hope MD [address] [place] [id number] PCP - General Internal Medicine 09/29/21 documented as of this encounter
--- OUTSIDE RECORDS SUMMARY | 2025-03-18 23:59 | XMS_ITS | Continuity of Care Document ---
Author Organization [facility] Address Unknown Care Team Providers Care Catering Cook Name Role Phone ERICKA CALLAWAY Primary Care Physician Encounter FT_FIN [id number] Date(s): 03/18/25 - 03/18/25 [facility] [address] [place] [address]- Discharge Disposition: Home (Routine DC) Attending Physician: Alma Martínez MD Admitting Physician: Alma Martínez MD Encounter Type: Lab Drop off Allergies, Adverse Reactions, Alerts Substance Criticality Severity Reaction Reaction Severity Status sulfa drugs Rash Active Assessment and Plan Diagnostic Tests Pending * Urine Cytology ([facility]) 03/18/25 Immunizations Given and Recorded Vaccine Date Status [...] vaccine, inactivated 05/22/15 Mariano rded SARS-CoV-2 (COVID-19) [id number] 06/19/22 Recorded SARS-CoV-2 (COVID-19) mRNA BNT-162b2 vax [...] Active Hyperlipidemia Confirmed Active Hypothyroidism Confirmed Active Kidney stones Confirmed Active Milia Confirmed Active Nonrheumatic mitral [...] more than 30 days ago;Never; Type: Cigarettes; Smoking Cessation Yes; Started at age: 18.0; Stopped at age: 27; entered on: 03/18/25 Sex Female Sex Representation Female (finding) Patient Care team information Care Team Personnel Name: ERICKA CALLAWAY MD Position: FT Physician Member Role: Primary Care Physician Address: [address] [place] [address] Telecom: Care Team Related Persons Name: AMIRA MONZON Name: AMIRA MONZON Insurance Providers Guarantor name: Health Plan Information #: 1 Payer: NA Payer Identifier: [id number] Member Number: [id number] Group Number: [id number] Subscriber Identifier: [id number] Relationship to Subscriber: Self Coverage Type: MEDICARE Coverage Verification Date: 25 Telecom: NA Address: Health Plan Information #: 2 Payer: NA Payer Identifier: [id number] Member Number: [id number] Group Number: PlanG Subscriber Identifier: [id number] Relationship to Subscriber: Self Coverage Type: PRIVATE HEALTH INSURANCE Coverage Verification Date: 25 Telecom: Address:
--- OUTSIDE RECORDS SUMMARY | 2025-03-18 23:59 | XMS_ITS | Continuity of Care Document ---
Author Organization [facility] Address [address] [place] [address] Care Team Providers Care Balance Bridge Inspector Name Role Phone ERICKA CALLAWAY Primary Care Physician [phone] Encounter FT_BRISEIDA [id number] Date(s): 03/18/25 - 03/18/25 [facility] [address] [place] [address]- Encounter Diagnosis Gross hematuria(Discharge Diagnosis) - 03/18/25 Stress incontinence(Discharge Diagnosis) - 03/18/25 Former smoker(Discharge Diagnosis) - 03/18/25 Kidney stones(Discharge Diagnosis) - 03/18/25 Discharge Disposition: Home (Routine DC) Attending Physician: Alma Martínez MD Encounter Type: Clinic Allergies, Adverse Reactions, Alerts Substance Criticality Severity Reaction Reaction Severity Status sulfa drugs Rash Active Immunizations Given and Recorded Vaccine Date Status [...] vaccine, inactivated 05/22/15 Mariano rded SARS-CoV-2 (COVID-19) [id number] 06/19/22 Recorded SARS-CoV-2 (COVID-19) mRNA BNT-162b2 vax [...] Active Gastroesophageal reflux disease without esophagitis Confirmed 12/9/20 Active Stress incontinence Confirmed Active History of [...] 03/18/25 Sex Female Sex Representation Female (finding) Hospital Discharge Instructions Patient Education 03/18/2025 11:00:25 Cystoscopy Cystoscopy Cystoscopy is a procedure that is used to help diagnose and sometimes treat conditions that affect the lower urinary tract. The lower urinary tract includes the bladder and the urethra. The urethra is the tube that drains urine from the bladder. Cystoscopy is done using a thin, tube-shaped instrument with a light and camera at the end (cystoscope). The cystoscope may be hard or flexible, depending on the goal of the procedure. The cystoscope is inserted through the urethra, into the bladder. Cystoscopy may be recommended if you have: ??? Urinary tract infections that keep coming back. ??? Blood in the urine (hematuria). ??? An inability to control when you urinate (urinary incontinence) or an overactive bladder. ??? Unusual cells found in a urine sample. ??? A blockage in the urethra, such as a urinary stone. ??? Painful urination. ??? An abnormality in the bladder found during an intravenous pyelogram (IVP) or CT scan. Cystoscopy may also be done to remove a sample of tissue to be examined under a microscope (biopsy). Tell a health care provider about: ??? Any allergies you have. ??? All medicines you are taking, including vitamins, herbs, eye drops, creams, and bola-loy-yhqllng medicines. ??? Any problems you or family members have had with anesthetic medicines. ??? Any blood disorders you have. ??? Any surgeries you have had. ??? Any medical conditions you have. ??? Whether you are or may be . What are the risks? Generally, this is a safe procedure. However, problems may occur, including: ??? Infection. ??? Bleeding. ??? Allergic reactions to medicines. ??? Damage to other structures or organs. What happens before the procedure? Medicines Ask your health care provider about: ??? Changing or stopping your regular medicines. This is especially important if you are taking diabetes medicines or blood thinners. ??? Taking medicines such as aspirin and ibuprofen. These medicines can thin your blood. Do not take these medicines unless your health care provider tells you to take them. ??? Taking kzgk-jik-filbfoz medicines, vitamins, herbs, and supplements. Tests You may have an exam or testing, such as: ??? X-rays of the bladder, urethra, or kidneys. ??? CT scan of the abdomen or pelvis. ??? Urine tests to check for signs of infection. General instructions ??? Follow instructions from your health care provider about eating or drinking restrictions. ??? Ask your health care provider what steps will be taken to help prevent infection. These steps may include: ??? Washing skin with a germ-killing soap. ??? Taking antibiotic medicine. ??? Plan to have a responsible adult take you home from the hospital or clinic. What happens during the procedure? You will be given one or more of the following: ??? A medicine to help you relax (sedative). ??? A medicine to numb the area (local anesthetic). ??? The area around the opening of your urethra will be cleaned. ??? The cystoscope will be passed through your urethra into your bladder. ??? Germ-free (sterile) fluid will flow through the cystoscope to fill your bladder. The fluid willstretch your bladder so that your health care provider can clearly examine your bladder turner. ??? Your doctor will look at the urethra and bladder. Your doctor may take a biopsy or remove stones. ??? The cystoscope will be removed, and your bladder will be emptied. The procedure may vary among health care providers and hospitals. What can I expect after the procedure? After the procedure, it is common to have: ??? Some soreness or pain in your abdomen and urethra. ??? Urinary symptoms. These include: ??? Mild pain or burning when you urinate. Pain should stop within a few minutes after you urinate.This may last for up to 1 week. ??? A small amount of blood in your urine for several days. ??? Feeling like you need to urinate but producing only a small amount of urine. Follow these instructions at home: Medicines ??? Take vyqr-zev-ozccjjw and prescription medicines only as told by your health care provider. ??? If you were prescribed an antibiotic medicine, take it as told by your health care provider. Donot stop taking the antibiotic even if you start to feel better. General instructions ??? Return to your normal activities as told by your health care provider. Ask your health care provider what activities are safe for you. ??? If you were given a sedative during the procedure, it can affect you for several hours. Do not drive or operate machinery until your health care provider says that it is safe. ??? Watch for any blood in your urine. If the amount of blood in your urine increases, call your health care provider. ??? Follow instructions from your health care provider about eating or drinking restrictions. ??? If a tissue sample was removed for testing (biopsy) during your procedure, it is up to you to get your test results. Ask your health care provider, or the department that is doing the test, when your results will be ready. ??? Drink enough fluid to keep your urine pale yellow. ??? Keep all follow-up visits. This is important. Contact a health care provider if: ??? You have pain that gets worse or does not get better with medicine, especially pain when you urinate. ??? You have trouble urinating. ??? You have more blood in your urine. Get help right away if: ??? You have blood clots in your urine. ??? You have abdominal pain. ??? You have a fever or chills. ??? You are unable to urinate. Summary ??? Cystoscopy is a procedure that is used to help diagnose and sometimes treat conditions that affect the lower urinary tract. ??? Cystoscopy is done using a thin, tube-shaped instrument with a light and camera at the end. ??? After the procedure, it is common to have some soreness or pain in your abdomen and urethra. ??? Watch for any blood in your urine. If the amount of blood in your urine increases, call your health care provider. ??? If you were prescribed an antibiotic medicine, take it as told by your health care provider. Donot stop taking the antibiotic even if you start to feel better. This information is not intended to replace advice given to you by your health care provider. Make sure you discuss any questions you have with your health care provider. Document Revised: 04/05/2022 Document Reviewed: 03/04/2021 Hired Patient Education ?? 2023 [employer]. 03/18/2025 11:00:22 Hematuria, Adult Hematuria, Adult Hematuria is blood [...] these instructions at home: Medicines ??? Take brvs-xfu-lmfyjkx and prescription medicines only as told by [...] the blood stops without treatment. ??? Take jzym-jki-lwagoar and prescription medicines only as told by your health care provider. ??? Drink enough fluid to keep your urine pale yellow. This information is not intended to replace advice given to you by your health care provider. Make sure you discuss any questions you have with your health care provider. Document Revised: 03/23/2021 Document Reviewed: 03/23/2021 Hired Patient Education ?? 2023 [employer]. Follow Up Care 02/27/2025 13:45:55 With:Mauricio DAVIES, Alma M., URL, [facility]RO Address: When: Unknown Patient Care team information Care Team Personnel Name: ERICKA CALLAWAY MD Position: FT Physician Member Role: Primary Care Physician Address: [address] [place] [address] Telecom: Care Team Related Persons Name: AMIRA MONZON Name: AMIRA MONZON Insurance Providers Guarantor name: Health Plan Information #: 1 Payer: NA Payer Identifier: [id number] Member Number: [id number] Group Number: [id number] Subscriber Identifier: [id number] Relationship to Subscriber: Self Coverage Type: MEDICARE Coverage Verification Date: 25 Telecom: NA Address: NA Health Plan Information #: 2 Payer: NA Payer Identifier: [id number] Member Number: [id number] Group Number: PlanG Subscriber Identifier: [id number] Relationship to Subscriber: Self Coverage Type: PRIVATE HEALTH INSURANCE Coverage Verification Date: 25 Telecom: Address:
--- OUTSIDE RECORDS SUMMARY | 2025-03-20 09:44 | XMS_ITS | Clinical Summary ---
Author Organization [facility] Address [address] [place] [address] Phone Care Team Providers Care Ornamental Plasterer Helper Name Role Phone Unavailable Primary Care Provider [...]
--- OUTSIDE RECORDS SUMMARY | 2025-03-20 09:44 | XMS_ITS | Encounter Summary ---
Author Organization [facility] Address [address], [address] [place] [address] Care Team Providers Care Practical Nursing Faculty Name Role Phone Oliver Hope MD Primary Care Provider [phone] Encounter Details Date Type Department Care Team (Late st Contact Info) Description 03/02/2025 Abstract [facility] [address] [place] [phone] Oliver Hope MD [address] [place] [address] Social History Tobacco Use Types Packs/Day Years Used Date Smoking Tobacco: Former Cigarettes 1 15 1 09/14/1976 - 07/22/1989 Smokeless Tobacco: Never Alcohol Use Standard Drinks/Week Comments Yes 0 (1 standard drink = 0.6 oz pur e alcohol) [facility] Utilities Answer Date Recorded In the past 12 months has [employer], gas, oil, or water [employer] threatened to shut off services in your [...] place to sleep or slept in a residential (including now)? No 08/14/2023 Housing Stability Vital Sign Answer Chirag e Recorded In the last 12 months, was t here a time when you were not able to pay the mortgage or rent on time? No 03/11/2025 In the past 12 months, how m any times have you moved where you were living? 0 03/11/2025 At any time in the past 12 m [facility], were you homeless or living in a residential (including now)? No 03/11/2025 Food Insecurity Answer [...] PM EDT Office Visit Silvia Hope MD [facility] [address] [place] [address] Oliver Hope MD [address] [place] [phone] welcome to medicare; f/u labs 05/20/2025 11:10 AM EDT Office Visit [facility] Part of [address] [place] [address] Minda Cash APRN - [id number] [place] [phone] Yearly documented as of this encounter Visit Diagnoses Not on filedocumented in this encounter Care Teams Practical Nursing Faculty Relationship Specialty Start Date End Date Oliver Hope MD [address] [place] [id number] PCP - General Internal Medicine 09/29/21 documented as of this encounter
--- OUTSIDE RECORDS SUMMARY | 2025-03-20 09:44 | XMS_ITS | Clinical Summary ---
Author Organization [facility] Address [address], [address] [place] [address] Care Team Providers Care Strapping Machine Operator Name Role Phone Oliver Hope MD Primary Care Provider [phone] Allergies Active Allergy Reactions Criticality Noted Date Comments Silicone Other (See Comments) Low 03/06/2013 unknown Sulfa Antibiotics Rash Low 03/06/2013 Medications aspirin 81 MG tablet Take 1 tablet by mouth daily Active polyethylene glycol (GLYCOLAX) powder Take 17 g by mouth daily Active Multiple Vitamins-Mineral s (THERAPEUTIC MULTIVITAMIN-MIN ERALS) tablet Take 1 tablet by mouth daily 50+ Centrum Silver Active vitamin C (ASCORBIC ACID) 500 MG tablet Take 2 tablets by mouth daily Active Calcium-Vitamin D-Vitamin K ([employer] CALCIUM SOFT CHEWS) 650-12.5-40 MG-MCG-MCG CHEW Take 650 mg by mouth daily Active Multiple Vitamins-Mineral s (VISION FORMULA EYE HEALTH) CAPS Take 1 capsule by mouth daily Active Probiotic Product (PROBIOTIC PEARLS WOMENS) CAPS Take 17 mg by mouth daily Active estrogens conjugated (PREMARIN) 0.625 MG/GM CREA vaginal creamIndications :Vaginal dryness, menopausal,Postm enopausal hormone replacement therapy Place 0.5 g vaginally daily For 2 weeks then 1-2 Xs a week 90 g 2 4 Active estrogen, conjugated,-medr oxyPROGESTERone (PREMPRO) 0.3-1.5 MG per tabletIndication s:Postmenopausal hormone replacement therapy Take 1 tablet by mouth daily 90 tablet 3 4 Active levothyroxine (SYNTHROID) 112 MCG tablet Take 1 tablet by mouth once daily 90 tablet 3 4 Active medroxyPROGESTER one (DEPO-PROVERA) 150 MG/ML injection Inject 1 mL into the muscle every 3 months 1 mL 3 5 Active citalopram (CELEXA) 20 MG tablet TAKE 1 TABLET BY MOUTH EVERY DAY 90 tablet 3 5 Active gabapentin (NEURONTIN) 300 MG capsule TAKE 1 CAPSULE BY MOUTH TWICE A DAY AND 2 CAPS AT BEDTIME Active SUMAtriptan (IMITREX) 50 MG tablet Take by mouth Active omeprazole (PRILOSEC) 40 MG delayed release capsule TAKE 1 CAPSULE BY MOUTH EVERY DAY 90 capsule 3 5 Active atorvastatin (LIPITOR) 40 MG tablet TAKE 1 TABLET BY MOUTH EVERY DAY 90 tablet 3 5 Active metoprolol tartrate (LOPRESSOR) 25 MG tablet TAKE 1 TABLET BY MOUTH TWICE A DAY 180 tablet 3 5 Active Hospital, Clinic, or Other Facility Administered Medication Ordered Dose Route Frequency Start Date End Date Status medroxyPROGESTERone (DEPO-PROVERA) injection 150 mgIndications:Postmenopausa l hormone replacement therapy 150 mg IM ONCE 03/11/2025 03/11/2025 Ended Active Problems Problem Noted Date Diagnosed Date Acute rhinitis 05/18/2021 Coronary artery dissection 12/03/2020 Gastroesophageal reflux disease without esophagi tis 07/14/2020 Encounters Date Type Department Care Team Description 03/11/2025 3:50 PM EDT Clinical Support [facility] Part of [address] [place], [place] [id number] Postmenopausal hormone replacement therapy (Primary Dx) 03/02/2025 Abstract [facility] [address] [place] [id number] Oliver Hope MD 02/12/2025 Abstract [facility] Part of [address] [place] [phone] Nelly Mary, PIPE MACHINE OPERATOR - LEAF SIZE PICKER 02/03/2025 Refill [facility] [address] [place] [address] Oliver Hope MD Medication Refill 01/30/2025 9:17 AM EDT - 02/01/2025 11:59 PM EDT Hospital Encounter [facility] Ultrasound [address] [place] [id number] Oliver Hope MD Encounter for abdominal aortic aneurysm (AAA) screening Discharge Disposition: Home or Self Care 01/26/2025 Orders Only [facility] [address] [place] [address] Oliver Hope MD Encounter for abdominal aortic aneurysm (AAA) screening (Primary Dx) 01/22/2025 Telephone [facility] [address] [place] [address] MorenoKat santoyo Tramaine 12/18/2024 Refill [facility] [address] [place] [address] Oliver Hope MD Medication Refill from Last 3 Months Immunizations Immunization Administration [...] drink = 0.6 oz pur e alcohol) [facility] Remarkities Answer Date Recorded In the past 12 months has e [employer], gas, oil, or water [employer] threatened to shut off services in your [...] any time in the [facility], were you homeless or living in [...] Office Visit [facility] [address] [place] [phone] Oliver Hope MD [address] [place] [address] welcome to medicare; f/u labs 05/20/2025 11:10 AM EDT Office Visit [facility] Part of [address] [place] [address] Minda Cash APRN - [place] [address] [place] [address] [address] [place] [address] Yearly Health Maintenance Due Date [...] 03/06/2025 05/08/2023, 10/2022, 05/23/2022, Additional history exists Pap smear 05/10/2025 05/10/2022, 08/0 01/2019, 04/17/2016, Additional history exists DTaP/Tdap/Td vaccine (2 - Td or Tdap) 08/06/2025 08/06/2015 Depression Screen 03/11/2026 03/11/2025, 03/11/2025 Breast cancer screen 08/26/2026 08/26/2024, 08/01/2023, 07/27/2022, [...] HIGH RISK Routine 05/10/2022 7:57 AM EDT SEAM FINISHER CYTOLOGY Routine 05/10/2022 7:57 AM EDT COMPREHENSIVE [...] to the patient regarding the results. The [employer] recommends annual mammograms for women 40 years and older. Performing Facility: [place] [id number] Narrative 08/27/2024 8:59 AM EST EXAMINATION: SCREENING [...] concerning grouping of microcalcification in either breast. Result [facility] Minda Cash PIPE MACHINE OPERATOR - CNM IMG MAMMOGRAPHY ORDER JOSE Final Result * Lipid Panel (02/26/2024) Cholesterol, Total 168 mg/dL HDL 65 35 - 70 mg/dL LDL Cholesterol 84 Triglycerides 94 mg/dL Chol/HDL Ratio 2.58 VLDL Cholesterol non HDL Blood BLOOD SPECIMEN / Unknown 02/26/2024 Result [facility] Oliver Hope MD CHEMISTRY ORDERABLES Ellie l Result * HM COLONOSCOPY (10/16/2022) Julia Provider HEALTH MAINTENANCE Final Result * Human papillomavirus (HPV) DNA probe thin prep high risk (05/10/2022 7:57 AM EDT) Specimen Description .GENITAL - NOT SPECIFIED 05/10/2022 7:57 AM EDT [facility] HPV Sample .THIN PREP 05/10/2022 7:57 AM EDT [facility] HPV, Genotype 16 Not Detected Not Detected 05/10/2022 7:57 AM EDT [facility] HPV, Genotype 18 Not Detected Not Detected 05/10/2022 7:57 AM EDT [facility] HPV, High Risk Other Not Detected Not Detected 05/10/2022 7:57 AM EDT [facility] HPV, Interpretation 05/10/2022 7:57 AM EDT [facility] Comment: This test amplifies and detects DNA [...] Unknown 05/10/2022 7:57 AM EDT Minda Cash APRN - CNM HEMATOLOGY ORDERABLES Final Result [facility] [address] [place] [address], [facility] [phone] [place] [id number], [facility] [phone] * SEAM FINISHER Cytology (05/10/2022 7:57 AM EDT) Cytology Report INTERPRETATION Cervical material, (ThinPrep vial, Imaging-assisted review): Specimen Adequacy: Satisfactory for evaluation. Descriptive Diagnosis: Negative for intraepithelial lesion or malignancy. Labor Contractor: PARTHA Vogel(ASCP) Electronically Signed Out /05/17/2022 Procedure/Addendum HPV Procedure Report Date Ordered: 05/11/2022 [...] review) Clinical History Endometrial ablation Z01.419 Routine panelboard assembler exam without abnormal findings Z11.51 Encounter for screening for HPV Co-Test: ThinPrep Pap with high risk HPV testing GYNECOLOGIC CYTOLOGY REPORT Patient Name: INGE BERGERON [facility] Rec: [id number] Path Number: [id number] [facility] ANATOMIC PATHOLOGY [facility] [facility]. [place], [place] [address] [facility] CERVICAL MATERIAL 05/10/2022 7:57 AM EDT 05/11/2022 7:57 AM EDT Minda Cash PIPE MACHINE OPERATOR - CNM PATHOLOGY/CYTOLOGY OR DERABLES Final Result [address] [address] [phone] [facility] [address] [place] [address], [facility] [phone] * Comprehensive Metabolic Panel, Fasting (02/08/2021) Glucose, Fasting 96 mg/dL Creatinine 0.49 BUN Sodium Potassium 4.2 mmol/L Chloride CO2 Calcium 9.4 mg/dL AST 27 U/L Alkaline Phosphatase Total Protein Albumin Total Bilirubin ALT 28 U/L BLOOD SPECIMEN / Unknown 02/08/2021 Historical Provider MD CHEMISTRY ORDERABLES Edit ed Result - Final * POCT Fecal Immunochemical Test (FIT) (03/14/2018 11:52 AM EDT) Pathologist [facility] Occult Blood Fecal negative Control A STOOL SPECIMEN / Unknown 03/14/2018 11:52 AM EDT Minda Cash PIPE MACHINE OPERATOR - CNM POINT OF CARE TEST OR [...] the lumbar spine and hips. Gustavo Vences PIPE MACHINE OPERATOR - LEAF SIZE PICKER IMG DEXA ORDERABLES Final Result from Last 3 Months or Most Recently Relevant to Health Maintenance Insurance [facility] [place] [phone] [place] [phone] Care Teams Strapping Machine Operator Relationship Specialty Start Date End Date Oliver Hope MD [address] [place] [address] PCP - General Internal Medicine 09/29/21
--- OUTSIDE RECORDS SUMMARY | 2025-03-20 09:44 | XMS_ITS | Encounter Summary ---
Author Organization [facility] Address [address], [address] [place] [address] Care Team Providers Care Pile Driving Supervisor Name Role Phone Oliver Hope MD Primary Care Provider [phone] Encounter Details Date Type Department Care Team (Late st Contact Info) Description 12/03/2020 Abstract [facility] [address] [facility], [address] [place] [phone] Kehinde Goldstein, BUSINESS SERVICES SPECIALIST SALES - [facility] [address] [facility] [place], [facility] [address] [place] [phone] Social History Tobacco Use Types Packs/Day Years [...] Office Visit [facility] [address] [place] [address] Oliver Hope MD [address] [place] [address] welcome to medicare; f/u labs 05/20/2025 11:10 AM EDT Office Visit [facility] Part of [address] [place] [phone] Minda Cash APRN - [address] [place] [address] Yearly documented as of this encounter Visit Diagnoses Not on filedocumented in this encounter Care Teams Pile Driving Supervisor Relationship Specialty Start Date End Date Oliver Hope MD [address] [place] [address] PCP - General Internal Medicine 09/29/21 documented as of this encounter
--- OUTSIDE RECORDS SUMMARY | 2025-03-20 09:44 | XMS_ITS | Clinical Summary ---
Author Organization [facility] [facility] tem Address [id number] [address] [place] [address] Care Team Providers Care Porcelain Technician Name Role Phone Unavailable Primary Care Provider [...]
--- OUTSIDE RECORDS SUMMARY | 2025-03-20 09:44 | XMS_ITS | Clinical Summary ---
Author Organization [facility] Address [address] [place] [address] Care Team Providers Care Motor Grader Rough Grade Name Role Phone Unavailable Primary Care Provider Unavailabl e Allergies Active Allergy Reactions Criticality Noted Date Comments Silicone Other Low 03/06/2013 unknown Sulfa Antibiotics Rash,Unknown Low 03/06/2013 Medications levothyroxine (Synthroid, Levoxyl) 112 MCG tablet Take 1 tablet by mouth Daily 08/06/2019 Active atorvastatin (Lipitor) 40 MG tablet Take 1 tablet by mouth Daily 02/18/2024 Active gabapentin (Neurontin) 300 MG capsule 07/07/2024 Active citalopram (CeleXA) 20 MG tablet Take 1 tablet by mouth Daily 01/01/2024 Active metoprolol tartrate (Lopressor) 25 MG tablet Take 1 tablet by mouth in the morning and 1 tablet before bedtime. 02/18/2024 Active omeprazole (PriLOSEC) [address] capsule Take 1 capsule by mouth Daily 08/06/2019 Active Active Problems No known active problems Encounters Date Type Department Care Team Description 02/23/2025 8:20 AM EDT [facility] [address] [place] [address] Yissel Guzman PA Basal cell carcinoma of skin of other part of trunk (Primary Dx) 02/23/2025 Bamboo flowsheet [facility] [address] [place] [address] Yissel Guzman PA 02/23/2025 Travel 02/17/2025 Travel from Last 3 Months Social History Tobacco Use Types Packs/Day Years Used Date Smoking Tobacco: Never Smokeless Tobacco: Never Tobacco Cessation:Counseling Given: Not Answered Comments Unknown Sex and Gender Information Value Date Recorded Sex Assigned at Not on file Legal Sex Female 7:47 PM EDT Gender Identity Not on file Sexual Orientation Not on file Plan of Treatment Upcoming Encounters Date Type Department Care Team (Late st Contact Info) Description 06/26/2025 9:40 AM EST Office Visit [facility] [address] [place] [phone] Yissel Guzman, PA [address] [place] [address] Health Maintenance Due Date Last Done Comments CT Colonography 1959 FIT-DNA 1960 Sigmoidoscopy 1960 Pneumococcal Vaccine: 65+ Ye ars (1 of 1 - PCV) 2009 FIT 03/14/2019 03/14/2018 FOBT 03/14/2019 03/14/2018 Influenza Vaccine (#1) 2025 , 05/23/2022, 05/13/2021, Additional history exists Pap Smear 05/10/2025 05/10/2022, 0 12/2021, 03/11/2019 Mammogram 08/26/2025 08/26/2024, 08/07, 08/01/2023, Additional history exists Cervical Cancer Screening 05/10/2027 HPV/Cotest 05/10/2027 05/10/2022, 100 12/2021, 03/11/2019 Colonoscopy 10/16/2032 10/16/2022 Colorectal Cancer Screening 10/16/2032 Insurance MEDICARE
--- NOTE | 2025-03-20 09:58 | CT_ITS ---
The [address] [address] Patient Name: JUDIT MONZON MRN: [id number] date: 1960 Sex: F Assigned Patient Location: CT Current Patient Location: CT Accession/Order Number: [id number] Exam Date: 03/20/2025 12:31 Report Date: 03/20/2025 12:47 At the request of: MAIKEL HERNANDEZ MD Procedure: CT abdomen pelvis wo/w con CT ABDOMEN AND PELVIS WITH AND WITHOUT INTRAVENOUS CONTRAST: CLINICAL HISTORY: Gross Hematuria COMPARISON: None TECHNIQUE: Spiral images were obtained through the abdomen and pelvis before and after the administration of intravenous contrast. This CT exam was performed using one or more following dose reduction techniques: Automated exposure control, adjustment of the mA and/or kV according to patient size, or use of iterative reconstruction technique. FINDINGS: Lung Bases: [Bibasilar atelectasis.] Organs:Noncontrast images demonstrate bilateral nephrolithiasis and nephrocalcinosis largest stone measuring 4 mm involving the right kidney. No ureteral or urinary bladder calculus. Postcontrast images demonstrate no enhancing renal or collecting system mass. Bilateral cystic changes involving the kidneys. Opacified ureters appear unremarkable. Urinary bladder is grossly unremarkable.[ Cholelithiasis. Subcentimeter low-attenuation lesion involving the right lobe of the liver too small for accurate characterization. Pancreas spleen and adrenal glands appear unremarkable. Abdominal aorta appears normal in caliber. GI: Stomach is grossly unremarkable. Small bowel appears nondilated. No acute colonic abnormality.[Appendix normal. Pelvis:[Uterus is grossly unremarkable. No adnexal mass.] Peritoneum/Retroperitoneum:No free air or free fluid or lymphadenopathy.[ Abd wall/Bones:Abdominal wall demonstrate no acute findings. Osseous structures demonstrate mild degenerative change.[ CT/CT abdomen pelvis wo/w con IMPRESSION: Bilateral nephrocalcinosis and nephrolithiasis largest now measuring 4 mm involving the right kidney. Cholelithiasis. Impression dictated by: Alverto Villegas Jr., D.O. 03/20/2025 12:47 PM Dictation Location: [place] [address] Electronically authenticated by: [id number] Y Date: 03/20/2025 12:47
[2025-03-20 10:01] LABS: Estimated GFR (African America >60 (>=60 mL/min/1.73m^2); Estimated GFR (Non-African Ame >60 (>=60 mL/min/1.73m^2)
== END 2025-03-20 09:43 | disposition home or self-care (01) ==
LOC: CT 09:42
PROVIDERS: PCP Internal Medicine; Visit Provider Urology
DX: R31.0 Gross hematuria (principal); N20.0 Calculus of kidney; K80.20 Calculus of gallbladder without cholecystitis without obstruction
CPT/HCPCS: 36415; 74178; 82565; Q9967